=== PATIENT | female | born 1970 ===

== ENCOUNTER 2022-01-30 16:46 | Emergency (ER) | payer OTHER ==
[~2022-01-30] VITALS: Ht 154.9 cm; Wt 59.9 kg
[2022-01-30] MEDS ORDERED: CHILDREN'S ASPI81 MG (17:03)
== END 2022-01-30 20:29 | disposition home or self-care (01) ==
LOC: ER 16:46
DX: R07.81 Pleurodynia (principal); S20.211A Contusion of right front wall of thorax, initial encounter; W18.30XA Fall on same level, unspecified, initial encounter; Y93.9 Activity, unspecified; Y92.9 Unspecified place or not applicable; Z88.6 Allergy status to analgesic agent